=== PATIENT | male | born 1990 | race Caucasian/White ===

== ENCOUNTER 2025-10-16 09:55 | Outpatient (REF) | payer BC, SELFPAY ==
[2025-10-16 17:09] LABS: HCT 49.6 % (40.0-50.0); HGB 16.8 g/dL (13.5-17.5); MCH 29.8 pg (27.0-33.0); MCHC 33.9 % (32.0-36.0); MCV 88 fL (80-95); MPV 9.2 fL (8.0-11.0); Platelet Count 335 10^3/uL (130-400); RBC 5.63 10^6/uL (4.36-5.78); RDW 12.0 % (11.8-14.1); RDW-SD 38.9 fL; WBC 5.75 10^3/uL (4.4-10.8)
[2025-10-16 17:21] LABS: ALT 55 U/L (10-49); AST 35 U/L (<34); Albumin 4.8 g/dL (3.2-5.0); Alkaline Phosphatase 89 U/L (46-116); Anion Gap 7.6 mmol/L (3-11); BUN 11 mg/dL (9-23); Bilirubin, Total 0.40 mg/dL (0.2-1.2); CO2 30.4 mmol/L (20.0-31.0); Calcium 10.0 mg/dL (8.3-10.6); Chloride 103 mmol/L (98-107); Cholesterol 127 mg/dL (<200); Glucose 73 mg/dL (74-106); HDL Cholesterol 37 mg/dL (>40); Potassium 4.5 mmol/L (3.5-5.1); Sodium 141 mmol/L (136-145); Total Protein 7.3 g/dL (5.7-8.2)
[2025-10-16 17:23] LABS: TSH (W/Ref FT4) 0.61 uIU/mL (0.55-4.78)
[2025-10-16 17:45] LABS: Hemoglobin A1C 5.1 % (<5.7)
[2025-10-18 10:46] LABS: Lyme Ab w Rflx to Lyme Confirm Negative (Negative)
[2025-10-20 13:27] LABS: B. miyamotoi PCR Negative (Negative); Babesia divergens/MO-1 Negative (Negative); Ehrlichia muris eauclairensis Negative (Negative)
== END 2025-10-16 09:56 | disposition home or self-care (01) ==
LOC: NCHCN 09:55
PROVIDERS: PCP Physician Assistant Medical; Visit Provider Physician Assistant Medical
DX: K21.9 Gastro-esophageal reflux disease without esophagitis (principal); Z13.220 Encounter for screening for lipoid disorders; Z13.1 Encounter for screening for diabetes mellitus; W57.XXXS Bitten or stung by nonvenomous insect and other nonvenomous arthropods, sequela; F41.9 Anxiety disorder, unspecified
CPT/HCPCS: 80053; 80061; 85027; 87798; 83036; 84443; 86618

== ENCOUNTER 2025-10-29 07:09 | Emergency (ER) | payer BC, SELFPAY ==
[2025-10-29] VITALS (7 sets, daily range): BP systolic 101–165; BP diastolic 64–98; PULSE 56–67; RESP 16–18; TEMP 36.1–36.9; O2SAT 98–100
--- NOTE | 2025-10-29 07:13 | W.ED.GENAD ---
Discharge Plan Disposition Patient Disposition: Home Discharge Details Clinical Impression: Symptomatic cholelithiasis Primary Care Provider: Gosia Garcia ED Provider: Chidi Shin Home Meds and New Rx's Prescriptions: Continued duloxetine 30 mg capsule,delayed release(DR/EC) 30 mg PO DAILY omeprazole 20 mg capsule,delayed release(DR/EC) 20 mg PO DAILY Discharge Instructions Additional Instructions: You are seen in the emergency department for your abdominal pain. Your ultrasound was concerning for a stone in the neck of your gallbladder. Please not eat or drink after midnight tonight. Please return as discussed with the general surgery team to the hospital in the morning for surgery. As we discussed if you develop abdominal pain nausea vomiting or fevers please return to the emergency department. For your pain please take medications as follows: 1. Take acetaminophen (Tylenol), 1,000 mg (two 500 mg tabs) every 6 hours [2. Take ibuprofen (Advil), 400 mg every 6 hours.] Stand Alone Forms: Portal Information Discharge Data Discharge Date/Time-TO BE ENTERED AT DEPARTURE: 10/29/25 14:04 HPI General Date/Time Provider Initiated Documentation: 10/29/25 07:13. HPI Narrative: MDM This is an uncomfortable appearing afebrile and not tachycardic 35-year-old male with epigastric pain concerning for multiple etiologies. Patient does have some right upper quadrant tenderness concerning for acute cholecystitis. He also has epigastric tenderness concerning for pancreatitis. I considered ACS however the patient denied chest pain and shortness of breath so I did not order an ECG nor troponin. No rash to abdomen to suggest zoster. No right lower quadrant tenderness to suggest acute appendicitis. In the absence of diarrhea and left lower quadrant tenderness my suspicion is lower for diverticulitis. No history of AAA to suggest ruptured AAA. Not marfanoid to suggest increased risk for splenic arterial aneurysm. In the absence of flank pain my suspicion is lower for ureterolithiasis. No testicular pain to suggest torsion. I considered PE however patient is PERC negative so I did not send a D-dimer. Will treat with famotidine, Mylanta, ketorolac ondansetron IV fluids and reassess following CT scan. 8:37 AM Reassuring normal lipase. Comprehensive metabolic panel shows no ALEJO. Normal LFTs with mildly elevated ALT. No CKD. CBC with new leukocytosis. Patient also has thrombocytosis. No anemia. 1:52 PM General surgery assessed the patient as he had stone in the neck of his gallbladder. Plan be for outpatient cholecystectomy tomorrow. I met the patient. We discussed that he should return to the ED if he had fevers chills nausea or vomiting. Otherwise he will be n.p.o. at midnight. Patient understood his return indications and was discharged with empiric trial of expectant outpatient management. HPI This is a patient with a history of abdominal pain presenting with cramping and stomach pain. The patient reports experiencing cramping and abdominal pain, which he describes as a sensation fadia to someone twisting his insides. This discomfort began approximately 12 hours ago, following his evening meal. The pain is localized to the stomach, specifically an inch below the sternum, and is described as being the size of a fist. He has been taking omeprazole 40 mg daily for similar episodes in the past, but he notes that the current episode is more prolonged than previous ones. He reports no other medical conditions, chest pain, fevers, burning with urination, respiratory difficulties, or diarrhea. He has experienced vomiting, which he attributes to potential acid reflux. He was asymptomatic yesterday and reports no recent exposure to sick individuals. He has no history of abdominal surgeries or renal calculi. His mother and cousin have had their gallbladders removed in the last two years. Exam General: Well-appearing in no acute distress speaking in complete sentences. Head: Normocephalic, atraumatic. Eye: Extraocular eye movements intact. No conjunctival injection. No scleral icterus. Ear, nose, mouth, throat: Grossly normal inspection. Normal voice, handling secretions normally. Neck: Trachea midline. Cardiovascular: Well-perfused distal extremities. Regular rate and rhythm Respiratory: Nonlabored respiration. Clear lungs bilaterally. Gastrointestinal: Nondistended abdomen. Soft. Epigastric tenderness and right upper quadrant tenderness. No rebound. No guarding. Musculoskeletal: No edema. Moving all 4 extremities spontaneously. Skin: Normal for age and race, grossly normal temperature and turgor. No acute rash. Neurologic: Alert and appropriate, no apparent acute deficits. Related Data Home Medications ?Medication ?Instructions ?Recorded ?Confirmed duloxetine 30 mg capsule,delayed 30 mg PO DAILY 08/22/24 10/29/25 release omeprazole 20 mg capsule,delayed 20 mg PO DAILY 08/22/24 10/29/25 release Allergies Allergy/AdvReac Type Severity Reaction Status Date / Time No Known Allergies Allergy Verified 10/29/25 14:12 PFSH All Active Problems (Updated 10/29/25 @ 14:11 by Enrike Guerra) Symptomatic cholelithiasis (Acute) Nontraumatic compartment syndrome of upper extremity (Acute) Disorder of spinal region (Acute) Lumbosacral radiculopathy (Acute) Pain in thoracic spine (Acute) Anxiety disorder (Acute) Medical History (Updated 10/29/25 @ 14:11 by Enrike Guerra) History of herniated intervertebral disc with repair Surgical History (Updated 10/29/25 @ 14:11 by Enrike Guerra) History of surgery on arm fx Social History Smoking/Tobacco Use Status: Former Tobacco Use Quit Date: 11/15/17 Smoking risk assessment performed?: Yes Alcohol Intake: never Drug use: Never Substance use type: does not use Housing: house Do you feel safe at home: Yes Do you feel safe in your relationship?: Yes
[2025-10-29 07:50] LABS: Abs Immature Grans 0.07 10^3/uL (0.0-0.06); HCT 47.9 % (40.0-50.0); HGB 16.8 g/dL (13.5-17.5); Immature Grans % 0.6 %; MCH 30.2 pg (27.0-33.0); MCHC 35.1 % (32.0-36.0); MCV 86 fL (80-95); MPV 8.9 fL (8.0-11.0); Platelet Count 421 10^3/uL (130-400); RBC 5.57 10^6/uL (4.36-5.78); RDW 12.1 % (11.8-14.1); RDW-SD 38.2 fL; WBC 12.36 10^3/uL (4.4-10.8)
[2025-10-29] MEDS: Normal Saline 500 ML IV ×2 (07:57→10:27)
[2025-10-29] MEDS: Ondansetron 4 MG/2 ML VIAL IVP (07:58)
[2025-10-29] MEDS: Ketorolac 15 MG/ML VIAL IVP ×2 (07:59→10:27)
[2025-10-29] MEDS: Famotidine 20 MG/2 ML VIAL 40 MG IVP (08:01)
[2025-10-29] MEDS: Mylanta Suspension 30 ML CUP PO (08:03)
[2025-10-29] MEDS: Normal Saline 50 ML 200 ML (08:03)
[2025-10-29 08:07] LABS: Lipase 36 U/L (<53)
[2025-10-29 08:10] LABS: ALT 67 U/L (10-49); AST 30 U/L (<34); Albumin 4.6 g/dL (3.2-5.0); Alkaline Phosphatase 89 U/L (46-116); Anion Gap 9.6 mmol/L (3-11); BUN 9 mg/dL (9-23); Bilirubin, Total 0.7 mg/dL (0.2-1.2); CO2 27.4 mmol/L (20.0-31.0); Calcium 10.2 mg/dL (8.3-10.6); Chloride 104 mmol/L (98-107); Glucose 132 mg/dL (74-106); Potassium 4.1 mmol/L (3.5-5.1); Sodium 141 mmol/L (136-145); Total Protein 7.5 g/dL (5.7-8.2)
[2025-10-29] MEDS: Omnipaque 350 MG/ML 100 ML BTL IJ (08:28)
[2025-10-29] MEDS: Normal Saline Flush 10 ML SYR IVP (08:29)
[2025-10-29] MEDS: Normal Saline - Diluent 50 ML VIAL IJ (08:29)
--- NOTE | 2025-10-29 08:40 | DI.CT_ITS ---
Exam(s) CT ABDOMEN PELVIS W EXAM: CT ABDOMEN PELVIS W CLINICAL HISTORY: Epigastric pain tenderness. TECHNIQUE: Imaging Protocol: Axial computed tomography images with coronal and sagittal reformatted images were created and reviewed CONTRAST MATERIAL: Intravenous: Omnipaque 350 Contrast volume:100 ml Oral: no COMPARISON: No exams were available for comparison FINDINGS: ABDOMEN and PELVIS: Lung Bases: No acute findings. Liver: Normal density. No suspicious mass. Gallbladder and biliary tract: Mural calcification at the fundus of the gallbladder. No wall thickening or pericholecystic fluid. No biliary dilation. Pancreas: Normal density. No abnormal calcifications or inflammatory process. No evidence of mass. Spleen: Normal. Kidneys: Normal size, contour and axis. No radiodense stones. No obstructive uropathy. No suspicious masses seen. Adrenal glands: No masses seen. Vasculature: Abdominal aorta non-dilated. Soft tissues: Unremarkable. Bladder: No gross wall thickening. No calculi.No focal mass. Bowel: The stomach is unremarkable. No obstruction. No bowel wall thickening. Appendix normal. Normal quantity of stool. Peritoneal cavity: No ascites. No focal collection. No mesenteric inflammatory response. No free air. Bones: Degenerative disc changes at L4-5. Schmorl's node at the superior endplate of L5. Reproductive organs: Unremarkable. Lymph nodes: No pathologically enlarged lymph nodes. IMPRESSION:: No acute abnormality in the abdomen or pelvis. RADIATION DOSE DELIVERED: Total DLP DATA REPOSITORY: All CT scans at this facility are submitted to the National Radiology Data Registry (NRDR) Dose Index Registry (DIR) with the [employer] (ACR). RADIATION OPTIMIZATION: All CT scans at this facility use at least one of these dose optimization techniques: automated exposure control; mA and/or kV adjustment per patient size (includes targeted exams where dose is matched to clinical indication); or iterative reconstruction.
--- NOTE | 2025-10-29 09:00 | DI.US_ITS ---
Exam(s) US ABDOMEN LIMITED EXAM: US ABDOMEN LIMITED CLINICAL HISTORY: epigastric pain abnormal CT TECHNIQUE: Ultrasound abdomen performed using standard protocol. COMPARISON: CT CT ABDOMEN PELVIS W from 10/29/2025 FINDINGS: PANCREAS: Normal where visualized. LIVER: There is diffuse increased echogenicity of the liver consistent with fatty infiltration. Hepatopetal flow in the Portal Vein. The liver measures in 17.6 cm length. No evidence of a hepatic mass. GALLBLADDER:There are gallstones present. There is a 0.9 cm stone in the neck of the gallbladder. There is an echogenic wall in the fundus. The wall measures 3.3 mm in thickness. No pericholecystic fluid identified. BILIARY SYSTEM: Common bile duct measures < 7 mm. No intrahepatic biliary ductal dilation. ECKERT'S SIGN: Negative. RIGHT KIDNEY: Kidney is normal in size. No evidence of renal calculi. No evidence of hydronephrosis. No renal mass or cyst identified. ASCITES: None seen. IMPRESSION: 1. Cholelithiasis. There is a 9 mm immobile stone in the neck of the gallbladder. There is no biliary ductal dilatation. 2. Hepatic steatosis. DATA REPOSITORY:
--- NOTE | 2025-10-29 14:08 | W.SURGCON ---
Date of service: 10/29/25 Time of Service: 14:08 Assessment and Plan Assessment and plan (1) Symptomatic cholelithiasis: Status: Acute Assessment and plan: I do believe that the pain he is experiencing is consistent with symptomatic biliary colic. Fortunately, at this time, there are no signs of acute cholecystitis. We talked about surgery and the role of management of gallstones, and I do think he is a great candidate for laparoscopic cholecystectomy. I am able to make arrangements with the operating room to add him onto tomorrow's schedule, and I think it is fine for him to be discharged home tonight. Obviously, if his symptoms recur overnight, he can always return to the emergency department for admission. In the meantime, have encouraged him to keep his diet to simple clear liquids, and hopefully will do well with removal of his gallbladder tomorrow. History of Present Illness History of Present Illness Chief Complaint: Epigastric pain Narrative: Is 35 years old. Last night, immediately after eating dinner, he began experiencing sharp stabbing mid epigastric pain felt like somebody reached and squeezing his stomach. It radiated slightly towards the right upper quadrant. He had no episodes of nausea or vomiting with it, but has not had any meaningful appetite since it started. The pain continued all through the night and was a little bit more intense this morning. Came to the emergency department for evaluation. This is similar to pain that he has experienced in the past which has been attributed to his heartburn. He has been treated with omeprazole, but he has had some intermittent episodes every now and again, and he does not feel like the omeprazole really made any difference. In the emergency department, he had a mild leukocytosis, and he underwent a CAT scan that raise suspicion for a stone in the gallbladder. There was no pericholecystic fluid or send inflammation. LFTs and alk phos were normal. He followed up with an ultrasound to confirm the presence of a stone in the area of the gallbladder neck. With medications, a little bit of fluid resuscitation, he tells me is feeling better, the pain is mostly resolved. Review of Systems Constitutional Constitutional: Reports anorexia, Denies fatigue, Denies fever(s) and Denies weakness Eyes Eyes: Reports system reviewed and no additional complaints, except as documented ENT Ears, Nose, Mouth, and Throat: Reports system reviewed and no additional complaints, except as documented Cardiovascular Cardiovascular: Denies chest pain and Denies dyspnea Respiratory Respiratory: Denies chest congestion, Denies cough and Denies dyspnea Gastrointestinal Gastrointestinal: Reports abdominal pain, Denies bloating, Denies nausea and Denies vomiting Musculoskeletal Musculoskeletal: Reports system reviewed and no additional complaints, except as documented Neurologic Neurologic: Reports system reviewed and no additional complaints, except as documented and Denies weakness Endocrine Endocrine: Denies fatigue Hematologic/Lymphatic Hematologic/Lymphatic: Denies easy bleeding and Denies easy bruising PFSH All Active Problems (Updated 10/29/25 @ 14:11 by Enrike Guerra) Symptomatic cholelithiasis (Acute) Nontraumatic compartment syndrome of upper extremity (Acute) Disorder of spinal region (Acute) Lumbosacral radiculopathy (Acute) Pain in thoracic spine (Acute) Anxiety disorder (Acute) Medical History (Updated 10/29/25 @ 14:11 by Enrike Guerra) History of herniated intervertebral disc with repair Surgical History (Updated 10/29/25 @ 14:11 by Enrike Guerra) History of surgery on arm fx Social History Smoking/Tobacco Use Status: Former Tobacco Use Quit Date: 11/15/17 Smoking risk assessment performed?: Yes Alcohol Intake: never Drug use: Never Substance use type: does not use Housing: house Do you feel safe at home: Yes Do you feel safe in your relationship?: Yes Exam Const General: cooperative, healthy appearing and comfortable Orientation: alert, awake and oriented x3 HENMT Head: normal to inspection Eyes General: appearance normal, both eyes and all related structures Neck Neck: normal visual inspection, full ROM and no lymphadenopathy Resp Effort & Inspection: normal respiratory effort and able to speak in complete sentences Auscultation: clear to auscultation bilaterally Cardio Rate: regular rate Rhythm: regular rhythm Heart Sounds: S1 normal and S2 normal GI Inspection: normal to inspection and non-distended Palpation: soft, no guarding and nontender Percussion: normal to percussion Auscultation: normal bowel sounds Results Last Vital Signs Temp 98.4 F 10/29/25 11:24 Pulse 56 L 10/29/25 14:00 Resp 18 10/29/25 14:00 BP 128/71 10/29/25 14:00 Pulse Ox 98 10/29/25 14:00 Labs 10/29/25 07:30 10/29/25 07:30 Labs: Laboratory Results - last 24 hr 10/29/25 07:30 WBC 12.36 H RBC 5.57 Hgb 16.8 Hct 47.9 MCV 86 MCH 30.2 MCHC 35.1 RDW 12.1 Plt Count 421 H MPV 8.9 Immature Gran % 0.6 Neutrophils % 82.8 Lymphocytes % 10.0 Monocytes % 6.1 Eosinophils % 0.0 Basophils % 0.5 Nucleated RBC % 0.0 Absolute Neutrophils 10.23 H Absolute Lymphocytes 1.24 Absolute Monocytes 0.75 Absolute Eosinophils 0.00 Absolute Basophils 0.06 Sodium 141 Potassium 4.1 Chloride 104 Carbon Dioxide 27.4 Anion Gap 9.6 BUN 9 Creatinine 0.83 Est GFR (CKD-EPI 2020) 104.69 Glucose 132 H Calcium 10.2 Total Bilirubin 0.7 AST 30 ALT 67 H Alkaline Phosphatase 89 Total Protein 7.5 Albumin 4.6 Lipase [address] scan report/results: report reviewed and image reviewed CT scan - pelvis: report reviewed and image reviewed Abdominal ultrasound report/results: report reviewed and image reviewed
== END 2025-10-29 14:04 | disposition home or self-care (01) ==
PROVIDERS: Emergency Provider Emergency Medicine; PCP Physician Assistant Medical
DX: R10.11 Right upper quadrant pain; R10.13 Epigastric pain; K80.20 Calculus of gallbladder without cholecystitis without obstruction
CPT/HCPCS: 80053; 83690; 96361; 96374; 96375; 96376; 99285; 74177; 76705; 85025; 99284; J1885; J2405; J3490

== ENCOUNTER 2025-10-30 12:12 | Day surgery (SDC) | payer BC, SELFPAY ==
--- NOTE | 2025-10-29 17:44 | W.ANESPRE ---
General Info Date of Service Date Performed: 10/30/25 Height: 6 ft Weight: 95.708 kg Body Mass Index (BMI): 28.6 Surgical Procedure: Operation Date: 10/30/25 14:40 Proposed Procedure Side Surgeon p Cholecystectomy Laparoscopic Wiley Rinaldi MD Meds Allergies and Home Medications Allergies Allergy/AdvReac Type Severity Reaction Status Date / Time No Known Allergies Allergy Verified 10/30/25 12:50 Home Medication ?Medication ?Instructions ?Recorded duloxetine 30 mg capsule,delayed 30 mg PO DAILY 08/22/24 release omeprazole 20 mg capsule,delayed 20 mg PO DAILY 08/22/24 release PFSH Active Problems Active Problems: Problem Status Onset Code Symptomatic cholelithiasis Acute K80.20 Nontraumatic compartment syndrome of upper extremity Acute M79.A19 Disorder of spinal region Acute G95.9 Lumbosacral radiculopathy Acute M54.17 Pain in thoracic spine Acute M54.6 Anxiety disorder Acute F41.9 Medical History Medical History History of herniated intervertebral disc with repair Surgical History Surgical History History of surgery on arm fx Tobacco Smoking/Tobacco Use Status: Former Tobacco Use Passive smoking exposure: No Alcohol Alcohol Intake: never Substance Use Substance use: Never Substance use type: does not use Vital Signs and Lab Results Vital Signs Most Recent Vital Signs in EMR: Temp Pulse Resp BP Pulse Ox 36 C L 67 16 150/91 H 97 10/30/25 12:28 10/30/25 12:28 10/30/25 12:28 10/30/25 12:28 10/30/25 12:28 Lab Results Complete Blood Count: WBC, (4.4-10.8) 12.36 10^3/uL H 10/29/25, 07:30 RBC, (4.36-5.78) 5.57 10^6/uL 10/29/25, 07:30 Hgb, (13.5-17.5) 16.8 g/dL 10/29/25, 07:30 Hct, (40.0-50.0) 47.9 % 10/29/25, 07:30 Plt Count, (130-400) 421 10^3/uL H 10/29/25, 07:30 Complete Metabolic Panel: Sodium, (136-145) 141 mmol/L 10/29/25, 07:30 Potassium, (3.5-5.1) 4.1 mmol/L 10/29/25, 07:30 Chloride, (98-107) 104 mmol/L 10/29/25, 07:30 Carbon Dioxide, (20.0-31.0) 27.4 mmol/L 10/29/25, 07:30 BUN, (9-23) 9 mg/dL 10/29/25, 07:30 Creatinine, (0.73-1.18) 0.83 mg/dL 10/29/25, 07:30 Est GFR (CKD-EPI 2020), (mL/min/1.73m2) 104.69 10/29/25, 07:30 Calcium, (8.3-10.6) 10.2 mg/dL 10/29/25, 07:30 Albumin, (3.2-5.0) 4.6 g/dL 10/29/25, 07:30 Glucose, (74-106) 132 mg/dL H 10/29/25, 07:30 Hemoglobin A1c, (<5.7) 5.1 % 10/16/25, 08:20 Liver Function Panel: ALT, (10-49) 67 U/L H 10/29/25, 07:30 AST, (<34) 30 U/L 10/29/25, 07:30 Pancreas Panel: Lipase, (<53) 36 U/L 10/29/25, 07:30 Thyroid Panel: TSH, (0.55-4.78) 0.61 uIU/mL 10/16/25, 08:20 Anesthesia Assessment and Plan Anesthesia History Personal History: No History of Anesthesia Complications Family History: No Family History of Anesthesia Complications Exercise Tolerance Exercise Tolerance: Metabolic Equivalents>4 Pertinent Negatives Pertinent Negatives: No Symptoms of GERD, No Major Cardiovascular Symptoms or Complaints, No Major Pulmonary Symptoms or Complaints and No History of CVA/TIA Cardiac & Pulmonary Exam Cardiac Exam: Normal S1/S2 Heart Sounds Pulmonary Exam: Clear Bilateral Breath Sounds Implantable Cardiac Device Does patient have a Pacemaker or an ICD?: No Airway Exam Known Difficult Airway: No Mallampati Class: 1 Mouth Opening: Normal (> 3cm) Thyromental Distance: Greater than 3 cm Neck Range of Motion: Full ROM Neck Circumference: Normal Teeth Condition: Normal Dentition ASA Classification ASA Score: ASA 1 Emergency Case?: No NPO Status NPO Status: NPO Clears >2 hours, Solids >8 hours Anesthesia Plan Resuscitation Status: Full Code Anesthesia Technique: General Anesthesia Airway Planned: Endotracheal Tube Monitors Used: Standard Monitors Preoperative Comments:: No nerve damage noted in right hand following compartment syndrome, no deficits in lower extremities from spine surgery hx
--- NOTE | 2025-10-29 20:05 | PDOC.DSDIS_ITS ---
Date of service: 10/30/25 Discharge Plan Disposition Patient Disposition: Home Condition: Good Discharge Details Reason For Visit: laparoscopic cholecystectomy Attending Provider: Wiley Rinaldi Primary Care Provider: Gosia Garcia Home Meds and New Rx's Prescriptions: Continued duloxetine 30 mg capsule,delayed release(DR/EC) 30 mg PO DAILY omeprazole 20 mg capsule,delayed release(DR/EC) 20 mg PO DAILY Discharge Instructions Instructions: Cholecystectomy, Laparoscopic Surgery Additional Instructions: Anything, was great seeing you today, and I hope you make a quick and uneventful recovery as you transition home. Your gallbladder was quite inflamed, and certainly consistent with acute cholecystitis, which is congruent with your symptoms. We were able to remove it with the laparoscope today just as we discussed. Your common bile duct was mildly dilated, so I did send a blood test during the operation to make sure that your bilirubin was still okay. And those blood test are normal. So I am optimistic you will do well at home. Expect to get some bruising over the incision sites, that is extremely common and nothing to worry about. I would encourage you to use ice packs over the incisions to help with pain and swelling after surgery. Be careful with your lifting over the next few days. Although you should be up and moving around, avoid strenuous activities like shoveling snow, or anything that significantly increases your intra-abdominal pressure. You can leave the Band-Aids in place until tomorrow. If they become saturated with blood and need to be exchanged tonight, that is fine just use regular Band-Aids. Beginning tomorrow, you should wash all of the incisions with warm soapy water. Replace the Band-Aids if that is most comfortable. Alternatively, the incisions can be left open to the air starting tomorrow. If you need anything at all, please do not hesitate to call, otherwise I look forward to seeing you at your follow-up visit. 1. Resume all of your regular medications. 2. Use ice packs over the incisions to help with pain and swelling. 3. Alternate over the counter tylenol and ibuprofen every 6 hours for the first 2 days, then use as needed. Use the prescription for tramadol if needed for severe pain. 4. Leave bandages in place for 24 hours, then remove. 5. Shower with warm soapy water. Pat dry. Replace bandaids if you find that most comfrtable. 6. No soaking or tub baths until I see you in the office. 7. No heavy lifting until I see you in the office. 8. Call the office (or go directly to the emergency room after hours) if you notice any of the following: Develop chills (warm to touch), or if you have a thermometer and your temperature is above 101 Difficulty breathing or difficultly swallowing Persistent vomiting Any bleeding ? exceeding one tablespoon 9. Call your physician if the site where your intravenous was started becomes red, swollen, painful, and warm to touch. Stand Alone Forms: Portal Information Referrals: Wiley Rinaldi MD [ [facility] STAFF PHYSICIAN, Surgery] - 11/12/25 8:45 am Activity:: no heavy lifting Remove Dressings/Wound Care:: 24 hours Shower/Bathe:: 24 hours Diet:: As Tolerated Discharge Orders Discharge Orders: Discharge Order (Routine); Ordered 10/29/25 Ordered By: Wiley Rinaldi DS: Diagnosis Discharge Diagnosis (1) Symptomatic cholelithiasis: Status: Acute
--- NOTE | 2025-10-29 20:09 | ROE_ITS ---
Operative Note Operative Note PRE-OP DIAGNOSIS: Biliary colic POST-OP DIAGNOSIS: other (Cholecystitis) PROCEDURE: laparoscopic cholecystectomy SURGEON: Wiley Rinaldi SCREWDOWN OPERATOR: Jerilyn Ash ANESTHESIA TYPE: Local By Surgeon and General LMA/ETT Refer to Anesthesia Record ESTIMATED BLOOD LOSS: 50 PATHOLOGY: other (gallabladder) COMPLICATIONS: None Patient was transported to: PACU Patient's condition: stable Indications: Cristiano is 35 years old, and has had stabbing mid epigastric abdominal pain over the past 48 hours or so. He was in the emergency department yesterday, where he underwent a CT scan, as well as an ultrasound that demonstrated findings suggestive of biliary colic. Findings: Gallbladder wall edema consistent with acute cholecystitis; calcification of the dome of the gallbladder; mildly dilated appearing common bile duct Procedure Description: I met with Cristiano in the preoperative area, and we reviewed the plan for surgery. He was able to provide informed consent. We moved back to the operating room, and he was assisted onto the OR table. The anterior abdominal wall was prepped and draped in the usual fashion. I raise a skin wheal over the umbilical position and made a small midline incision above the umbilicus. Using a 5 mm optical viewing port, establish pneumoperitoneum. I returned a 5 mm 30 degree scope into the peritoneal cavity and insufflated. Another 5 mm port was added in the right anterior axillary line, and the camera was moved to this position in order to upsized the umbilical port to 12 mm. After this was done, the camera was moved back to the umbilicus, Cristiano was placed in some foot down, and left side down positioning, and I placed 2 more 5 mm ports. 1 in the mid axillary line, and 1 in the mid epigastrium. There were adhesions of the greater omentum onto a calcified dome of the gallbladder. These were divided with the LigaSure device. The dome was then retracted cephalad, and some adhesions along the thickened gallbladder wall were taken down along the gallbladder body. With the assistance of indocyanine green, I began by disse cting the gallbladder infundibulum. I worked in a lateral to medial fashion. Once I skeletonized the cystic duct and cystic artery, with a satisfactory critical view of safety, I doubly clipped and divided them. As the cystic neck was retracted forward, a branch of a posterior cystic artery was also identified. Great care was taken to dissect this clean. It was clearly heading directly into the gallbladder, well away from the cystic plate. There was no evidence pointing to this as a hepatic artery. This was also clipped and divided. I then used electrocautery to dissect the gallbladder off the gallbladder fossa. I passed the gallbladder into an Endo Catch bag and removed it by way of the umbilical site. I examined the surgical field. It was hemostatic. I then removed the 5 mm ports under the vision of the laparoscope. Finally, I removed the umbilical port site and closed the fascia with Vicryl stitches. Sites were irrigated, and the skin was closed with subcuticular stit ches. Bandages were applied, patient was awakened from anesthesia, and transferred to the recovery unit. Date of Procedure: 10/30/25
[2025-10-30] VITALS (25 sets, daily range): BP systolic 130–162; BP diastolic 64–96; PULSE 61–80; RESP 12–19; TEMP 36–36.8; O2SAT 95–100; BMI 28.6
[2025-10-30] MEDS: Lactated Ringers 1,000 ML 80 ML IV (12:55)
[2025-10-30] MEDS: Acetaminophen 500 MG TAB 1000 MG PO (12:58)
[2025-10-30] MEDS: Celecoxib 200 MG CAP PO (12:58)
[2025-10-30] MEDS: Gabapentin 300 MG CAP 600 MG PO (12:58)
[2025-10-30] MEDS: Indocyanine green 25 MG VIAL 5 MG IVP (13:03)
[2025-10-30] MEDS: Normal Saline Flush 10 ML SYR IV (13:05)
[2025-10-30] MEDS: ceFAZolin 2 GM/50 ML BAG IVPB (14:24)
[2025-10-30] MEDS: Bupivacaine 0.25% Pres-Free W/EPI 30 ML VIAL (14:51)
--- NOTE | 2025-10-30 15:55 | GB_PTH ---
PATIENT: Cristiano Mcdonald LOC: [facility] U#:[id number] AGE/SX: 35/M ROOM: RE10/30/[address]: Wiley Rinaldi MD : [id number] BED: DIS: 10/30/2025 SPEC #: [id number] RECD: 10/30/25 18:19 STATUS: MILAGROS REQ #: [id number] AMAURI: 10/30/25 15:[address]: Wiley Rinaldi DEPT: Surgical Specimen RECD BY: Miryam Boss ENTERED: 10/30/25 18:19 SP TYPE: GB OTHR DR: Gosia Garcia Tissues: 1 - GALLBLADDER Procedures: GROSS AND MICRO LEVEL 3 Comments: [id number]
[2025-10-30 16:03] LABS: Lipase 24 U/L (<53)
[2025-10-30 16:05] LABS: Bilirubin, Total 0.5 mg/dL (0.2-1.2)
--- NOTE | 2025-10-30 16:40 | W.ANESPOSTOP ---
Postoperative Evaluation Date, Time and Location Date Performed: 10/30/25 Time Performed: 16:40 Patient Location: PACU Vital Signs Most Recent Imported Vital Signs: Most Recent Vital Signs Temp Pulse Resp BP Pulse Ox 36.6 C 65 15 157/95 H 97 10/30/25 16:30 10/30/25 16:35 10/30/25 16:35 10/30/25 16:30 10/30/25 16:35 Pain Score Most Recent Pain Score: Most Recent Pain Score Pain Level 0 10/30/25 16:30 Assessment Mental Status: Awake (Alert & Oriented to Patient Baseline) Airway and Respiratory Function: Patent airway with normal (patient baseline) respiratory exam Cardiovascular Function: Hemodynamically Stable Hydration Status: Adequately Hydrated Nausea & Vomiting: No Nausea or Vomiting Pain: Pain is Moderate or Severe Postoperative Pain Management: Pain being addressed with medication Peripheral Nerve Block: Patient did not receive a nerve block
[2025-10-30] MEDS: fentaNYL 100 MCG/2 ML VIAL IVP ×2 (16:42→17:04)
[2025-10-30] MEDS: oxyCODONE 5 MG TAB PO (17:54)
== END 2025-10-30 18:20 | disposition home or self-care (01) ==
LOC: SUR 12:12
PROVIDERS: Nurse Anesthetist, Certified Registered; PCP Physician Assistant Medical; Visit Provider Surgery
PROC: 0FT44ZZ Resection of Gallbladder, Percutaneous Endoscopic Approach (ICD-10-PCS; CPT 47562; principal; 2025-10-30 14:30)
DX: K80.20 Calculus of gallbladder without cholecystitis without obstruction (principal)
CPT/HCPCS: 47562; 83690; 82247; 88304; J0690; J1100; J1171; J2003; J2405; J2704; J3010; J3475